=== PATIENT | male | born 1980 | race African-American/Black ===

== ENCOUNTER 2021-07-19 02:28 | Emergency (ER) | payer MEDICAID ==
[~2021-07-19] VITALS: Ht 185.4 cm; Wt 95.5 kg
[2021-07-19 02:35] VITALS: BP 135/80
--- NOTE | 2021-07-19 02:47 | PHYS DOC ---
General Adult EDM: Chief Complaint: MEDICAL CLEARANCE HPI: HPI: Patient is a 41 year old male who presents in police custody for medical clearance. Patient states he takes penicillin no other medications he has no allergies denies any surgeries. Patient denies smoking alcohol or drugs. Patient was taken into custody because he was found in a stolen vehicle. While under arrest patient states he had right lower extremity pain. On exam patient is alert. He is able to ambulate and bear weight. Patient was able to bear weight his entire weight standing only on his right lower extremity. Full range of motion at the knee and at the ankle again I did not see any deformities. Based on my exam believe the patient is medically cleared. Review of Systems: Review of Systems: Constitutional: Denies fever or chills. [] Eyes: Denies change in visual acuity. [] HENT: Denies nasal congestion or sore throat. [] Respiratory: Denies cough or shortness of breath. [] Cardiovascular: Denies chest pain or edema. [] GI: Denies abdominal pain, nausea, vomiting, bloody stools or diarrhea. [] : Denies dysuria. [] Musculoskeletal: Denies back pain or joint pain. [Positive leg pain] Integument: Denies rash. [] Neurologic: Denies headache, focal weakness or sensory changes. [] Endocrine: Denies polyuria or polydipsia. [] Lymphatic: Denies swollen glands. [] Psychiatric: Denies depression or anxiety. [] Heart Score: C/O Chest Pain: N/A Risk Factors: Risk Factors: DM, Current or recent (<one month) smoker, HTN, HLP, family history of CAD, obesity. Risk Scores: Score 0 - 3: 2.5% MACE over next 6 weeks - Discharge Home Score 4 - 6: 20.3% MACE over next 6 weeks - Admit for Clinical Observation Score 7 - 10: 72.7% MACE over next 6 weeks - Early Invasive Strategies Physical Exam: PE: Constitutional: Well developed, well nourished, no acute distress, non-toxic appearance. [] HENT: Normocephalic, atraumatic, bilateral external ears normal, oropharynx moist, no oral exudates, nose normal. [] Eyes: PERRLA, EOMI, conjunctiva normal, no discharge. [] Neck: Normal range of motion, no tenderness, supple, no stridor. [] Cardiovascular:Heart rate regular rhythm, no murmur [] Lungs & Thorax: Bilateral breath sounds clear to auscultation [] Abdomen: Bowel sounds normal, soft, no tenderness, no masses, no pulsatile masses. [] Skin: Warm, dry, no erythema, no rash. [] Back: No tenderness, no CVA tenderness. [] Extremities: No tenderness, no cyanosis, no clubbing, ROM intact, no edema. [] No deformities of right lower extremity noted. Patient full range of motion at the knee and at the ankle. Patient able to bear his entire weight on his right lower extremity. Neurologic: Alert , normal motor function, normal sensory function, no focal deficits noted. [] Psychologic: Affect normal, judgement normal, mood normal. [] EKG: EKG: [] Radiology/Procedures: Radiology/Procedures: [] Course & Med Decision Making: Course & Med Decision Making Pertinent Labs and Imaging studies reviewed. (See chart for details) [] Redd Disclaimer: Redd Disclaimer: This electronic medical record was generated, in whole or in part, using a voice recognition dictation system. Departure Departure Impression: Primary Impression: Medical clearance for incarceration Disposition: 01 HOME / SELF CARE / HOMELESS Condition: STABLE Patient Instructions: Exam, Normal, Adult Additional Instructions: Patient has been medically cleared for incarceration FELIPE FOSTER DO Jul 19, 2021 02:47
== END 2021-07-19 02:51 | disposition home or self-care (01) ==
LOC: ER 02:28
DX: M79.604 Pain in right leg
CPT/HCPCS: 99283